=== PATIENT | female | born 1975 | race Caucasian/White ===

== ENCOUNTER 2019-02-07 16:27 | Emergency (ER) | payer OTHER, MEDICAID ==
[~2019-02-07] VITALS: Ht 165.1 cm; Wt 70.3 kg
[~2019-02-07 16:27] MED LIST: ALPRAZOLAM1 M1 PO; ALPRAZOLAM2 MG; AMBIEN 5 MG TABL5 M1; CIPROFLOXACIN500 M1 PO; FIORICET 50-321 EACH PO; FLEXERIL PO; HYDROCODON-ACE1 EAC7 PO; HYDROCODONE-AP1 EAC6 PO; IBUPROFEN 800800 M1 PO; KEFLEX500 MG PO; MEDROLDOSEPACK PO; NAPROSYN500 MG PO; NORCO 5-325 TA1 EAC1 PO; NORCO 5-325 TA1 EACH PO; PHENERGAN 25 MG25 M1 PO; ROBAXIN500 MG PO; TRAMADOL100 MG PO; WELLBUTRIN XL150 MG PO; XANAX1 MG; ZOFRAN ODT4 MG PO
[2019-02-07] MEDS ORDERED: SUBOXONE 4 MG-1 EACH PO (16:41)
[2019-02-07] MEDS ORDERED: KEFLEX500 M1 PO (17:24)
[2019-02-07 17:47] VITALS: BP 107/73
== END 2019-02-07 17:48 | disposition home or self-care (01) ==
LOC: M.ERS 16:27
DX: L03.011 Cellulitis of right finger (principal); F41.9 Anxiety disorder, unspecified; G47.00 Insomnia, unspecified; G43.909 Migraine, unspecified, not intractable, without status migrainosus; Z90.710 Acquired absence of both cervix and uterus

== ENCOUNTER 2020-05-22 12:15 | Emergency (ER) | payer OTHER, MEDICAID ==
[~2020-05-22] VITALS: Ht 165.1 cm; Wt 65.8 kg
[~2020-05-22 12:15] MED LIST changes: +KEFLEX500 M1 PO; +SUBOXONE 4 MG-1 EACH PO
[2020-05-22] MEDS ORDERED: NEURONTIN100 MG PO (12:47)
[2020-05-22] MEDS ORDERED: NORCO 5-325 TA1 EAC2 PO (12:47)
[2020-05-22] MEDS ORDERED: IBUPROFEN 800800 M1 PO (12:47)
[2020-05-22] MEDS ORDERED: AUGMENTIN 875-1 EACH PO (12:48)
[2020-05-22 13:11] VITALS: BP 142/58
== END 2020-05-22 13:11 | disposition home or self-care (01) ==
LOC: M.ERS 12:15
DX: T24.202A Burn of second degree of unspecified site of left lower limb, except ankle and foot, initial encounter (principal); T24.101A Burn of first degree of unspecified site of right lower limb, except ankle and foot, initial encounter; T31.0 Burns involving less than 10% of body surface; G43.909 Migraine, unspecified, not intractable, without status migrainosus; Z90.710 Acquired absence of both cervix and uterus; X12.XXXA Contact with other hot fluids, initial encounter; Y93.89 Activity, other specified; Y92.89 Other specified places as the place of occurrence of the external cause; Y99.8 Other external cause status